=== PATIENT | female | born 1985 ===

== ENCOUNTER 2017-11-09 18:32 | Emergency (ER) | payer SELFPAY ==
[~2017-11-09] VITALS: Ht 165.1 cm; Wt 87.0 kg
[2017-11-09] MEDS ORDERED: QUET400T PO (18:58)
[2017-11-09 20:59] LABS: HCG SCREEN NEGATIVE
[2017-11-09 21:01] LABS: CLARITY URINE CLEAR (CLEAR); COLOR URINE YELLOW (YELLOW); KETONES URINE TRACE (NEGATIVE); LEUKOCYTE ESTERASE URINE NEGATIVE (NEGATIVE); NITRITE URINE NEGATIVE (NEGATIVE); OCCULT BLOOD URINE NEGATIVE (NEGATIVE); PH URINE 6.5 (4.5-8.0); PROTEIN URINE NEGATIVE (NEGATIVE); UROBILINOGEN URINE 0.2 E.U./dL (0.2-1.0)
[2017-11-09 22:26] VITALS: BP 159/94
== END 2017-11-09 22:26 | disposition home or self-care (01) ==
LOC: ER 18:32
DX: K43.9 Ventral hernia without obstruction or gangrene (principal); F20.9 Schizophrenia, unspecified; F17.200 Nicotine dependence, unspecified, uncomplicated; Z88.6 Allergy status to analgesic agent; Z98.890 Other specified postprocedural states
CPT/HCPCS: 81003; 81025; 84703; 99284; Z7610